=== PATIENT | male | born 1980 | race Two or more races ===

== ENCOUNTER 2021-03-30 18:02 | Inpatient (IN) | payer MEDICAID ==
[~2021-03-30] VITALS: Ht 177.8 cm; Wt 57.6 kg
[~2021-03-30 18:02] MED LIST: ETOMIDATE 2MG/ML 10ML VIAL IV ONE; SUCCINYLCHOLINE CHLORIDE 200MG/10ML IV ONE
[2021-03-30] MEDS ORDERED: SODIUM CHLORIDE 0.9% 1,000 ML IV ONE (19:00)
[2021-03-30 19:25] LABS: CHLORIDE 74 mEq/L (98-107)
[2021-03-30 19:29] LABS: ETHANOL BLOOD < 10 mg/dL
[2021-03-30] MEDS ORDERED: ONDANSETRON HCL 4MG/2ML INJ IV ONE (19:45)
[2021-03-30] MEDS ORDERED: SODIUM CHLORIDE 3% 500ML IV SOLN IV ONE (19:45)
[2021-03-30 19:48] LABS: CLARITY URINE CLEAR (CLEAR); COLOR URINE YELLOW (YELLOW); KETONES URINE NEGATIVE (NEGATIVE); LEUKOCYTE ESTERASE URINE NEGATIVE (NEGATIVE); NITRITE URINE NEGATIVE (NEGATIVE); OCCULT BLOOD URINE NEGATIVE (NEGATIVE); PH URINE 5.5 (4.5-8.0); PROTEIN URINE NEGATIVE (NEGATIVE); SPECIFIC GRAVITY URINE 1.004 (1.005-1.030); UROBILINOGEN URINE 0.2 E.U./dL (0.2-1.0)
[2021-03-30 19:55] LABS: *BARBITURATES SCREEN URINE NEGATIVE (NEGATIVE)
[2021-03-30 19:56] LABS: *AMPHETAMINES SCREEN URINE NEGATIVE (NEGATIVE); *BENZODIAZEPINES SCREEN URINE NEGATIVE (NEGATIVE); *COCAINE SCREEN URINE NEGATIVE (NEGATIVE); METHADONE URINE SCREEN NEGATIVE (NEGATIVE); OPIATES URINE SCREEN NEGATIVE (NEGATIVE)
[2021-03-30 19:57] LABS: CANNABINOID URINE SCREEN NEGATIVE (NEGATIVE); PHENCYCLIDINE URINE SCREEN NEGATIVE (NEGATIVE)
[2021-03-30] MEDS ORDERED: MIDAZOLAM HCL 100 MG in DEXT 5% WATER 80 ML IV ONE (20:00)
[2021-03-30] MEDS ORDERED: KCL 10MEQ/50ML PREMIX 50 ML IV ONE (20:00)
[2021-03-30] MEDS ORDERED: MIDAZOLAM HCL 100 MG in SODIUM CHLORIDE 0.9% 100 ML IV PRN (20:15)
[2021-03-30] MEDS ORDERED: SODIUM CHLORIDE 3% 100 ML IV NR (20:15)
[2021-03-30] MEDS ORDERED: FENTANYL CITRATE/PF 500 MCG in SODIUM CHLORIDE 0.9% 40 ML IV PRN (20:45)
[2021-03-30] MEDS ORDERED: FENTANYL CITRATE/PF 2,500 MCG in SODIUM CHLORIDE 0.9% 200 ML IV PRN (20:47)
[2021-03-30 20:52] LABS: BG BASE EXCESS -4.1 mmol/L (-2.0-2.0); BG CARBOXYHEMOGLOBIN 2.1 % (0.5-1.5); BG DEOXYHEMOGLOBIN 0.2 % (0.0-5.0); BG FRACTION INSPIRED OXYGEN 100; BG HCO3 ACT 19.4 mmol/L (22.0-26.0); BG METHEMOGLOBIN 0.3 % (0.0-1.5); BG OXYGEN SATURATION 99.8 % (92.0-98.5); BG OXYHEMOGLOBIN 97.4 % (94.0-97.0); BG PH 7.414 (7.350-7.450); BG SAMPLE SITE LEFT BRACHIAL; BG TOTAL HEMOGLOBIN 13.1 g/dL (12.0-18.0); BG VENT MODE VENT - AC
[2021-03-30] MEDS ORDERED: VANCOMYCIN 1 G PREMIX 200 ML IV ONE (22:00)
[2021-03-30] MEDS ORDERED: PIPERACILLIN/TAZ 3.375G PREMIX 50 ML IV ONE (22:00)
[2021-03-30 22:29] LABS: HEMOGLOBIN. 13.1 g/dL (14.0-18.0); MEAN CORPUSCULAR HEMOGLOBIN 30.7 pg (28.0-32.0); MEAN CORPUSCULAR VOLUME 84.3 fL (80.0-94.0); MEAN PLATELET VOLUME 7.4 fl (7.4-10.4); PLATELET 241 x1000/uL (130-400); RED BLOOD CELL COUNT 4.27 mill/uL (4.7-6.1); RED CELL DISTRIBUTION WIDTH 14.6 % (11.6-14.6)
[2021-03-30 23:12] LABS: CHLORIDE 81 mEq/L (98-107)
[2021-03-30 23:37] LABS: PLATELET ESTIMATE NORMAL
[2021-03-31] VITALS (80 sets, daily range): BP systolic 83–160; BP diastolic 50–128
[2021-03-31] MEDS ORDERED: MIDAZOLAM HCL 100 MG in SODIUM CHLORIDE 0.9% 80 ML IV PRN (01:15)
[2021-03-31] MEDS ORDERED: FENTANYL CITRATE/PF 500 MCG in SODIUM CHLORIDE 0.9% 40 ML IV PRN (01:15)
[2021-03-31] MEDS ORDERED: SODIUM CHLORIDE 0.9% 1,000 ML IV SCH (01:30)
[2021-03-31] MEDS ORDERED: LEVETIRACETAM 500 MG in SODIUM CHLORIDE 0.9% 100 ML IV SCH (02:30)
[2021-03-31] MEDS: MIDAZOLAM HCL 100 MG in SODIUM CHLORIDE 0.9% 100 ML IV PRN ×2 (02:36→22:56)
[2021-03-31] MEDS: FENTANYL CITRATE 2,500 MCG in SODIUM CHLORIDE 0.9% 200 ML IV PRN (02:37)
[2021-03-31] MEDS ORDERED: LEVETIRACETAM 500MG PREMIX 100 ML IV SCH (03:30)
[2021-03-31] MEDS ORDERED: POTASSIUM CHLORIDE INJ 40 MEQ in DEXT 5% WATER 250 ML IV NR (03:30)
[2021-03-31 05:46] LABS: CHLORIDE 93 mEq/L (98-107)
[2021-03-31 05:49] LABS: HEMATOCRIT. 39.8 % (42.0-52.0); MEAN CORPUSCULAR VOLUME 85.5 fL (80.0-94.0); MEAN PLATELET VOLUME 7.7 fl (7.4-10.4); PLATELET 279 x1000/uL (130-400); RED BLOOD CELL COUNT 4.65 mill/uL (4.7-6.1)
[2021-03-31] MEDS ORDERED: NOREPINEPHRINE 32 MG in DEXT 5% WATER 218 ML IV PRN (09:00)
[2021-03-31 09:01] LABS: BG BASE EXCESS 0.9 mmol/L (-2.0-2.0); BG CARBOXYHEMOGLOBIN 1.1 % (0.5-1.5); BG DEOXYHEMOGLOBIN 0.6 % (0.0-5.0); BG FRACTION INSPIRED OXYGEN 50; BG HCO3 ACT 25.3 mmol/L (22.0-26.0); BG METHEMOGLOBIN 0.3 % (0.0-1.5); BG OXYGEN SATURATION 99.4 % (92.0-98.5); BG PCO2 39.9 mmHg (35.0-45.0); BG PO2 209.3 mmHg (75.0-100.0); BG SAMPLE SITE RIGHT BRACHIAL; BG TOTAL HEMOGLOBIN 14.7 g/dL (12.0-18.0); BG VENT MODE VENT - AC
[2021-03-31] MEDS ORDERED: POTASSIUM CHLORIDE 20MEQ TABLET SR PO NR (09:45)
[2021-03-31] MEDS ORDERED: PANTOPRAZOLE SODIUM 40 MG/VIAL IV SCH (09:45)
[2021-03-31] MEDS: MIDODRINE HCL 5MG TABLET PO SCH ×3 (10:09→17:20)
[2021-03-31] MEDS: DEXTROSE 5% WATER 1,000 ML IV SCH ×2 (10:41→23:08)
[2021-03-31 13:17] LABS: PLATELET ESTIMATE NORMAL
[2021-03-31] MEDS: PHENYTOIN SODIUM 100MG/2ML VIAL IV SCH ×2 (13:17→21:51)
[2021-03-31] MEDS: IPRATROPIUM/ALBUTEROL 0.5-3(2.5)MG/3ML NEB HHN SCH ×2 (20:14→22:00)
[2021-03-31] MEDS: FAMOTIDINE 20MG/2ML VIAL IV SCH (21:51)
[2021-03-31] MEDS ORDERED: THIAMINE HCL 100 MG in SODIUM CHLORIDE 0.9% 49 ML IV NR (22:30)
[2021-04-01] VITALS (86 sets, daily range): BP systolic 85–129; BP diastolic 43–78
[2021-04-01 05:56] LABS: CHLORIDE 100 mEq/L (98-107)
[2021-04-01 06:05] LABS: BASOPHILS % 0.8 % (0.0-2.0); EOSINOPHILS % 0.7 % (0.0-5.0); HEMATOCRIT. 39.4 % (42.0-52.0); HEMOGLOBIN. 13.9 g/dL (14.0-18.0); LYMPHOCYTES % 14.6 % (20.0-50.0); MEAN CORPUSCULAR VOLUME 87.9 fL (80.0-94.0); MEAN PLATELET VOLUME 7.9 fl (7.4-10.4); NEUTROPHILS % 72.9 % (40.0-76.0); PLATELET 247 x1000/uL (130-400); RED BLOOD CELL COUNT 4.49 mill/uL (4.7-6.1); RED CELL DISTRIBUTION WIDTH 15.7 % (11.6-14.6)
[2021-04-01] MEDS ORDERED: POTASSIUM CHLORIDE 20MEQ/PACKET PO SCH (06:30)
[2021-04-01] MEDS: PHENYTOIN SODIUM 100MG/2ML VIAL IV SCH ×3 (07:25→22:16)
[2021-04-01] MEDS: IPRATROPIUM/ALBUTEROL 0.5-3(2.5)MG/3ML NEB HHN SCH ×2 (07:54→15:17)
[2021-04-01] MEDS: MIDODRINE HCL 5MG TABLET PO SCH ×3 (09:29→17:47)
[2021-04-01] MEDS: FAMOTIDINE 20MG/2ML VIAL IV SCH ×2 (09:29→20:30)
[2021-04-01] MEDS: FENTANYL CITRATE 2,500 MCG in SODIUM CHLORIDE 0.9% 200 ML IV PRN (12:13)
[2021-04-01] MEDS: MIDAZOLAM HCL 100 MG in SODIUM CHLORIDE 0.9% 100 ML IV PRN (20:21)
[2021-04-01] MEDS: QUETIAPINE FUMARATE 25MG TABLET PO SCH (20:30)
[2021-04-02] VITALS (56 sets, daily range): BP systolic 97–133; BP diastolic 49–86
[2021-04-02] MEDS: IPRATROPIUM/ALBUTEROL 0.5-3(2.5)MG/3ML NEB HHN SCH ×3 (02:00→17:25)
[2021-04-02 06:00] LABS: CHLORIDE 101 mEq/L (98-107)
[2021-04-02 06:02] LABS: BASOPHILS % 0.6 % (0.0-2.0); EOSINOPHILS % 2.4 % (0.0-5.0); HEMATOCRIT. 38.1 % (42.0-52.0); LYMPHOCYTES % 14.3 % (20.0-50.0); MEAN CORPUSCULAR HEMOGLOBIN 30.4 pg (28.0-32.0); MEAN CORPUSCULAR VOLUME 88.9 fL (80.0-94.0); MEAN PLATELET VOLUME 8.3 fl (7.4-10.4); MONOCYTES % 11.4 % (2.0-8.0); NEUTROPHILS % 71.3 % (40.0-76.0); PLATELET 196 x1000/uL (130-400); RED BLOOD CELL COUNT 4.28 mill/uL (4.7-6.1); RED CELL DISTRIBUTION WIDTH 15.8 % (11.6-14.6)
[2021-04-02] MEDS: PHENYTOIN SODIUM 100MG/2ML VIAL IV SCH ×3 (06:30→21:48)
[2021-04-02] MEDS: THIAMINE HCL 100MG TABLET PO SCH ×2 (08:58→17:14)
[2021-04-02] MEDS: QUETIAPINE FUMARATE 25MG TABLET PO SCH ×2 (08:58→21:47)
[2021-04-02] MEDS: FAMOTIDINE 20MG/2ML VIAL IV SCH ×2 (08:58→21:48)
[2021-04-02] MEDS: MIDODRINE HCL 5MG TABLET PO SCH ×3 (08:58→17:13)
[2021-04-02 09:11] LABS: BG BASE EXCESS 0.8 mmol/L (-2.0-2.0); BG CARBOXYHEMOGLOBIN 0.5 % (0.5-1.5); BG DEOXYHEMOGLOBIN 0.6 % (0.0-5.0); BG HCO3 ACT 25.4 mmol/L (22.0-26.0); BG METHEMOGLOBIN 0.2 % (0.0-1.5); BG OXYGEN SATURATION 99.4 % (92.0-98.5); BG OXYHEMOGLOBIN 98.7 % (94.0-97.0); BG PCO2 40.7 mmHg (35.0-45.0); BG PH 7.413 (7.350-7.450); BG PO2 203.2 mmHg (75.0-100.0); BG SAMPLE SITE RIGHT RADIAL; BG TOTAL HEMOGLOBIN 14.1 g/dL (12.0-18.0); BG VENT MODE TEATMENT
[2021-04-02] MEDS: LORAZEPAM 2MG/ML CPJ IV PRN ×2 (10:29→14:41)
[2021-04-02] MEDS: ENOXAPARIN 40MG/0.4ML SYR SUBCUT SCH (17:14)
[2021-04-03] VITALS (9 sets, daily range): BP systolic 100–131; BP diastolic 59–81
[2021-04-03] MEDS: IPRATROPIUM/ALBUTEROL 0.5-3(2.5)MG/3ML NEB HHN SCH ×4 (00:40→21:32)
[2021-04-03] MEDS: PHENYTOIN SODIUM 100MG/2ML VIAL IV SCH ×2 (05:41→14:20)
[2021-04-03] MEDS: QUETIAPINE FUMARATE 25MG TABLET PO SCH (09:08)
[2021-04-03] MEDS: FAMOTIDINE 20MG/2ML VIAL IV SCH (09:08)
[2021-04-03] MEDS: MIDODRINE HCL 5MG TABLET PO SCH ×3 (09:08→17:57)
[2021-04-03] MEDS: THIAMINE HCL 100MG TABLET PO SCH ×2 (09:08→17:56)
[2021-04-03] MEDS: ENOXAPARIN 40MG/0.4ML SYR SUBCUT SCH (17:57)
[2021-04-03] MEDS: FAMOTIDINE 20MG TABLET PO SCH (21:28)
[2021-04-03] MEDS: QUETIAPINE FUMARATE 50MG TABLET PO SCH (21:28)
[2021-04-03] MEDS: PHENYTOIN SODIUM EXTENDED 100MG CAPSULE PO SCH (21:31)
[2021-04-04] VITALS: BP 111/66
[2021-04-04 04:00] VITALS: BP 106/60
[2021-04-04] MEDS: PHENYTOIN SODIUM EXTENDED 100MG CAPSULE PO SCH ×3 (06:12→21:13)
[2021-04-04 08:00] VITALS: BP 106/56
[2021-04-04] MEDS: IPRATROPIUM/ALBUTEROL 0.5-3(2.5)MG/3ML NEB HHN SCH ×3 (08:50→20:47)
[2021-04-04] MEDS: QUETIAPINE FUMARATE 50MG TABLET PO SCH ×2 (09:15→21:13)
[2021-04-04] MEDS: THIAMINE HCL 100MG TABLET PO SCH ×2 (09:15→16:45)
[2021-04-04] MEDS: FAMOTIDINE 20MG TABLET PO SCH ×2 (09:16→21:13)
[2021-04-04] MEDS: MIDODRINE HCL 5MG TABLET PO SCH ×3 (09:16→16:58)
[2021-04-04 12:00] VITALS: BP 123/51
[2021-04-04] MEDS ORDERED: PHEN100C4 PO (13:40)
[2021-04-04] MEDS ORDERED: QUET50TA PO (13:40)
[2021-04-04 16:00] VITALS: BP 135/58
[2021-04-04 16:31] LABS: BASOPHILS % 0.7 % (0.0-2.0); EOSINOPHILS % 0.6 % (0.0-5.0); HEMATOCRIT. 37.1 % (42.0-52.0); HEMOGLOBIN. 13.2 g/dL (14.0-18.0); LYMPHOCYTES % 17.6 % (20.0-50.0); MEAN CORPUSCULAR HEMOGLOBIN 31.5 pg (28.0-32.0); MEAN CORPUSCULAR VOLUME 88.6 fL (80.0-94.0); MEAN PLATELET VOLUME 8.4 fl (7.4-10.4); MONOCYTES % 10.7 % (2.0-8.0); NEUTROPHILS % 70.4 % (40.0-76.0); PLATELET 195 x1000/uL (130-400); RED BLOOD CELL COUNT 4.18 mill/uL (4.7-6.1); RED CELL DISTRIBUTION WIDTH 15.6 % (11.6-14.6)
[2021-04-04 16:43] LABS: CHLORIDE 105 mEq/L (98-107)
[2021-04-04] MEDS: ENOXAPARIN 40MG/0.4ML SYR SUBCUT SCH (16:48)
[2021-04-04 20:00] VITALS: BP 105/63
[2021-04-05] VITALS: BP 122/54
[2021-04-05 04:00] VITALS: BP 103/46
[2021-04-05 04:02] VITALS: BP 107/69
[2021-04-05 07:07] LABS: BASOPHILS % 0.9 % (0.0-2.0); EOSINOPHILS % 0.9 % (0.0-5.0); HEMATOCRIT. 37.5 % (42.0-52.0); HEMOGLOBIN. 13.2 g/dL (14.0-18.0); LYMPHOCYTES % 17.5 % (20.0-50.0); MEAN CORPUSCULAR HEMOGLOBIN 31.3 pg (28.0-32.0); MEAN PLATELET VOLUME 8.1 fl (7.4-10.4); MONOCYTES % 10.3 % (2.0-8.0); NEUTROPHILS % 70.4 % (40.0-76.0); PLATELET 193 x1000/uL (130-400); RED BLOOD CELL COUNT 4.21 mill/uL (4.7-6.1); RED CELL DISTRIBUTION WIDTH 15.3 % (11.6-14.6)
[2021-04-05 07:16] LABS: CHLORIDE 107 mEq/L (98-107)
== END 2021-04-05 06:25 | disposition home or self-care (01) | DRG 133 ==
LOC: ER 18:02 → ENRESERV 23:10 → CVICU 03-31 00:52 → 5EST 04-02 12:38 → 6WST 04-03 17:16
PROVIDERS: ADMIT Internal Medicine; ATTEND Internal Medicine
PROC: 5A1945Z Respiratory Ventilation, 24-96 Consecutive Hours (ICD-10-PCS; 2021-03-30)
PROC: 5A12012 Performance of Cardiac Output, Single, Manual (ICD-10-PCS; 2021-03-30)
PROC: 0BH17EZ Insertion of Endotracheal Airway into Trachea, Via Natural or Artificial Opening (ICD-10-PCS; 2021-03-30)
PROC: 4A10X4Z Monitoring of Central Nervous Electrical Activity, External Approach (ICD-10-PCS; principal; 2021-04-01)
DX: J96.01 Acute respiratory failure with hypoxia (principal); J69.0 Pneumonitis due to inhalation of food and vomit; G93.41 Metabolic encephalopathy; E44.0 Moderate protein-calorie malnutrition; E87.8 Other disorders of electrolyte and fluid balance, not elsewhere classified; E87.2 Acidosis; G40.909 Epilepsy, unspecified, not intractable, without status epilepticus; E87.1 Hypo-osmolality and hyponatremia; F20.0 Paranoid schizophrenia; E87.6 Hypokalemia; Z68.1 Body mass index [BMI] 19.9 or less, adult
CPT/HCPCS: 36415; 36600; 71045; 80048; 80053; 80061; 80185; 80305; 80307; 80320; 80329; 81003; 82140; 82375; 82533; 82805; 82962; 83605; 83735; 83880; 83930; 83935; 84295; 84443; 84484; 85025; 86850; 86870; 86900; 87070; 92610; 93005; 94002; 94003; 94640; 95816; 97110; 97162; 97166; 99291; A6261; C9113; J0330; J1165; J1650; J1953; J2060; J2250; J2405; J2543; J3010; J3370; J3411; J3480; J3490; J7030; J7050; J7060; J7070; G0480